=== PATIENT | female | born 1985 | race Hispanic/Latino ===

== ENCOUNTER 2021-08-20 03:35 | Inpatient (IN) | payer MEDICAID, SELFPAY ==
[2021-08-20] MEDS ORDERED: hydrALAZINE 20 MG/ML VIAL SLOW IVP PRN ×3 (03:49→07:24)
[2021-08-20 04:02] VITALS: BMI 32.8
[2021-08-20] MEDS ORDERED: Methylergonovine 0.2 MG/ML VIAL IM PRN (04:08)
[2021-08-20] MEDS ORDERED: Diphenoxylate HCl/Atropine Tablet PO PRN ×2 (04:08)
[2021-08-20] MEDS ORDERED: Carboprost 250 MCG/ML AMP IM PRN (04:08)
[2021-08-20] MEDS ORDERED: Ondansetron PF 4 MG/2 ML Vial IVP PRN ×2 (04:08→07:24)
[2021-08-20] MEDS ORDERED: Acetaminophen 500 MG TAB PO PRN (04:08)
[2021-08-20] MEDS ORDERED: Ibuprofen 800 MG TAB PO PRN (04:08)
[2021-08-20] MEDS ORDERED: Promethazine HCl 25 MG/ML VIAL IM PRN ×2 (04:08→07:24)
[2021-08-20] MEDS ORDERED: Lidocaine 1% (PF) 30 ML VIAL SC PRN (04:08)
[2021-08-20] MEDS ORDERED: Misoprostol 200 MCG TAB PR PRN (04:08)
[2021-08-20] MEDS ORDERED: Lactated Ringer's 1,000 ML IV SCH (04:15)
[2021-08-20] MEDS ORDERED: NS w/ Oxytocin 30 units 500 ML IV SCH ×2 (04:15→07:24)
[2021-08-20 04:33] LABS: Mean Corpuscular HGB CONC 30.1 g/dL (32.0-36.0); Mean Corpuscular Hemoglobin 25.2 pg (27.0-33.0); Mean Corpuscular Volume 83.5 fl (81.6-98.3); Mean Platelet Volume 12.3 fl (7.4-10.4); Platelet Count 158 10x3/uL (150-450); RBC Distribution Width 16.3 % (11.5-14.5); Red Blood Cell (RBC) Count 4.37 10x6/uL (3.90-5.03); White Blood Cell (WBC) Count 7.6 10x3/uL (3.5-10.5)
[2021-08-20] MEDS: NS w/ Oxytocin 30 units 500 ML IV SCH ×2 (04:50→05:43)
[2021-08-20 05:02] LABS: Syphilis Antibody Nonreactive (Nonreactive); Syphilis Antibody Index 0.04 S/CO (<1.00 Non-Reactive)
[2021-08-20 05:03] LABS: Hep B Surf Ag Non-Reactive S/CO (NonReactive)
[2021-08-20 05:05] LABS: HBSAg Index 0.17 S/CO (0-0.99)
[2021-08-20] MEDS ORDERED: Boostrix 0.5 ML (Tdap) VIAL IM ONE (07:24)
[2021-08-20] MEDS ORDERED: diphenhydrAMINE 25 MG CAP PO PRN (07:24)
[2021-08-20] MEDS ORDERED: Zolpidem Tartrate 5 MG TAB PO PRN (07:24)
[2021-08-20] MEDS ORDERED: Milk Of Magnesia 30 ML UDCUP PO PRN (07:24)
[2021-08-20] MEDS ORDERED: Preparation H Ointment 28 GM TUBE PR PRN (07:24)
[2021-08-20] MEDS ORDERED: Bisacodyl 10 MG SUPP PR PRN (07:24)
[2021-08-20] MEDS ORDERED: Benzocaine-Menthol 82.5 ML CAN TOP PRN (07:24)
[2021-08-20] MEDS ORDERED: Lanolin Ointment 7 GM TUBE TOP PRN (07:24)
[2021-08-20] MEDS ORDERED: Ibuprofen 800 MG TAB PO SCH (07:30)
[2021-08-20 07:59] LABS: SARS-CoV-2 NAA Rapid Test Not Detected (NotDetected)
[2021-08-20] MEDS: Ferrous Sulfate 325 MG TAB PO SCH ×2 (09:46→18:26)
[2021-08-20] MEDS: Docusate 100 MG CAP PO SCH ×2 (09:51→21:48)
[2021-08-20] MEDS: Prenatal Vitamin 1 TAB PO SCH (09:51)
[2021-08-20] MEDS: Ibuprofen 800 MG TAB PO SCH ×2 (14:04→21:47)
[2021-08-21] MEDS: Ibuprofen 800 MG TAB PO SCH (05:31)
[2021-08-21 08:14] VITALS: BP 126/69; TEMP 98.1
[2021-08-21] MEDS: Prenatal Vitamin 1 TAB PO SCH (08:57)
[2021-08-21] MEDS: Ferrous Sulfate 325 MG TAB PO SCH (08:57)
[2021-08-21] MEDS: Docusate 100 MG CAP PO SCH (08:57)
== END 2021-08-21 13:30 | disposition home or self-care (01) | DRG 807 ==
LOC: CSHLD/OP 03:35 → CSHLD 04:08 → CSHPP 08:47
PROVIDERS: ADMIT Obstetrics & Gynecology; ATTEND Obstetrics & Gynecology
PROC: 10E0XZZ Delivery of Products of Conception, External Approach (ICD-10-PCS; principal; 2021-08-20)
PROC: 10907ZC Drainage of Amniotic Fluid, Therapeutic from Products of Conception, Via Natural or Artificial Opening (ICD-10-PCS; 2021-08-20)
DX: O69.81X0 Labor and delivery complicated by cord around neck, without compression, not applicable or unspecified (principal); Z37.0 Single live birth; Z20.822 Contact with and (suspected) exposure to COVID-19; Z3A.38 38 weeks gestation of pregnancy; O62.3 Precipitate labor
CPT/HCPCS: 36415; 85027; 86780; 86850; 86900; 86901; 87340; 99285; J2590; J7120; U0002